=== PATIENT | male | born 1990 | race Two or more races ===

== ENCOUNTER 2021-12-19 12:42 | Emergency (ER) | payer MEDICAID ==
[~2021-12-19] VITALS: Ht 172.7 cm; Wt 90.7 kg
--- NOTE | 2021-12-19 12:45 | NUR ---
Pt placed into room 4B by crude tester via waiting room for mulitple complaints x a few days. CC is upper pain in bilat arms. VSS. Pt has no other health issues. Pt denies any sob, dizziness or discomfort. No s/sxogf Addendum: 12/19/21 at 1300 by [email or web address] no s/sxof distress present.
--- NOTE | 2021-12-19 12:50 | NUR ---
EDMD at bedside to eval pt.
--- NOTE | 2021-12-19 13:00 | NUR ---
engineer technical staff at bedside to draw blood and collect specimens.
[2021-12-19 13:17] LABS: HEMATOCRIT 46.2 % (36.7-47.1); MEAN CORPUSCULAR HEMOGLOBIN 27.5 uug (23.8-33.4); MEAN CORPUSCULAR VOLUME 81.5 fL (73.0-96.2); PLATELET COUNT (AUTO) 263 K/uL (152-348)
[2021-12-19 13:18] LABS: CREATININE 0.9 mg/dL (0.6-1.3)
--- NOTE | 2021-12-19 13:20 | NUR ---
PCXR performed on pt by [email or web address] without difficulty.
[2021-12-19 13:24] LABS: BILIRUBIN,DIRECT 0.1 mg/dL (0.0-0.2); BILIRUBIN,TOTAL 0.2 mg/dL (0.2-1.0); TOTAL PROTEIN, SERUM 7.2 g/dL (6.4-8.2)
--- NOTE | 2021-12-19 13:41 | NUR ---
EDMD at bedside discussing a lab result with pt, and going over dispo.
[2021-12-19] MEDS ORDERED: FAMO40TA71 PO (13:45)
[2021-12-19] MEDS ORDERED: LOPE-195 PO (13:45)
--- NOTE | 2021-12-19 13:56 | NUR ---
DCd intructions and prescription given to pt. who verbalized understanding. Patient left room AAOX4. steady gait.
== END 2021-12-19 13:59 | disposition home or self-care (01) ==
LOC: ER 12:42
DX: M79.602 Pain in left arm (principal); M79.601 Pain in right arm; K29.60 Other gastritis without bleeding
CPT/HCPCS: 36415; 71045; 83690; 84484; 85025; 93005; A4663

== ENCOUNTER 2022-04-17 07:59 | Emergency (ER) | payer MEDICAID ==
[~2022-04-17] VITALS: Ht 170.2 cm; Wt 90.7 kg
[~2022-04-17 07:59] MED LIST: FAMO40TA71 PO; LOPE-195 PO
--- NOTE | 2022-04-17 08:13 | NUR ---
ER MD AT BEDSIDE FOR MSE; PT IN NAD; COMMUNICATES COMPLAINT AND ANSWERS QUESTIONS CLEARLY TO MD.
[2022-04-17] MEDS ORDERED: KETOROLAC TROMETHAMINE 30 MG INJ IM ONE (08:15)
[2022-04-17] MEDS ORDERED: KETOROLAC TROMETHAMINE 30 MG INJ ONE (08:24)
--- NOTE | 2022-04-17 08:53 | NUR ---
XRAY AT BEDSIDE FOR IMAGING STUDY
[2022-04-17] MEDS ORDERED: NAPR-1009 PO (09:12)
--- NOTE | 2022-04-17 09:18 | NUR ---
PATIENT STATES PAIN HAS IMPROVE FROM 7/10 TO 2/10 AT THIS TIME. PT IN NAD.
[2022-04-17 09:25] VITALS: BP 129/87
--- NOTE | 2022-04-17 09:25 | NUR ---
Patient discharged to home in stable condition. Written and verbal after care instructions given. Patient verbalizes understanding of instructions. Stressed follow up or return to ER for worsening s/s.
== END 2022-04-17 09:27 | disposition home or self-care (01) ==
LOC: ER 07:59
DX: M25.512 Pain in left shoulder (principal); M54.2 Cervicalgia; R03.0 Elevated blood-pressure reading, without diagnosis of hypertension
CPT/HCPCS: 99283; 73030; 96372; J1885; A4663

== ENCOUNTER 2023-12-15 16:51 | Emergency (ER) | payer MEDICAID ==
[~2023-12-15] VITALS: Ht 160 cm; Wt 95.3 kg
[~2023-12-15 16:51] MED LIST changes: +NAPR-1009 PO
[2023-12-15] MEDS ORDERED: HYDROCODONE/APAP 10-325 MG TABLET ONE (18:22)
[2023-12-15] MEDS: HYDROCODONE/APAP 10-325 MG TABLET PO ONE (18:24)
[2023-12-15 19:07] LABS: BASOPHILS # (AUTO) 0.1 K/UL (0.0-0.2); BASOPHILS % (AUTO) 0.5 % (0.0-2.0); HEMATOCRIT 45.8 % (36.7-47.1); HEMOGLOBIN 14.8 g/dL (12.5-16.3); LYMPHOCYTES # (AUTO) 1.1 K/uL (0.8-4.8); LYMPHOCYTES % (AUTO) 7.3 % (20.5-51.5); MEAN CORPUSCULAR HEMOGLOBIN 26.5 uug (23.8-33.4); MEAN CORPUSCULAR HGB CONC 32 g/dL (32.5-36.3); MEAN CORPUSCULAR VOLUME 81.9 fL (73.0-96.2); MONOCYTES # (AUTO) 0.8 K/uL (0.1-1.30); MONOCYTES % (AUTO) 5.1 % (0.0-11.0); NEUTROPHILS # (AUTO) 13.6 K/uL (1.8-8.9); NEUTROPHILS % (AUTO) 87.1 % (38.5-71.5); PLATELET COUNT (AUTO) 243 K/uL (152-348); RED CELL DISTRIBUTION WIDTH 12.9 % (12.1-16.2); WHITE BLOOD COUNT (AUTO) 15.7 K/uL (3.6-10.2)
[2023-12-15 19:17] LABS: CALCIUM 8.7 mg/dL (8.5-10.1); CREATININE 0.8 mg/dL (0.6-1.3)
[2023-12-15] MEDS ORDERED: AMOX-430 PO (20:24)
[2023-12-15] MEDS ORDERED: DEXAMETHASONE 4 MG TABLET ONE (20:50)
[2023-12-15] MEDS ORDERED: AMOXICILLIN-CLAVUL 875-125MG TABLET ONE (20:50)
[2023-12-15] MEDS: DEXAMETHASONE 4 MG TABLET PO ONE (20:55)
[2023-12-15] MEDS: AMOXICILLIN-CLAVUL 875-125MG TABLET PO ONE (20:55)
[2023-12-15 20:58] VITALS: BP 130/85; O2SAT 97
== END 2023-12-15 20:57 | disposition home or self-care (01) ==
LOC: ER 16:52
DX: J02.9 Acute pharyngitis, unspecified (principal); R50.9 Fever, unspecified; M79.10 Myalgia, unspecified site; R07.89 Other chest pain
CPT/HCPCS: 99284; 71045; 80048; 85025; 86403; 36415; J8540; A4606; A4663

== ENCOUNTER 2024-08-29 19:10 | Emergency (ER) | payer MEDICAID ==
[~2024-08-29 19:10] MED LIST changes: +AMOX-430 PO
== END 2024-08-29 21:02 | disposition left against medical advice (07) ==
LOC: ER 19:10
DX: M25.522 Pain in left elbow (principal); Z53.21 Procedure and treatment not carried out due to patient leaving prior to being seen by health care provider